=== PATIENT | male | born 1965 | race Hispanic/Latino ===

== ENCOUNTER 2017-02-10 20:00 | Emergency (ER) | payer OTHER ==
--- NOTE | 2017-02-10 21:08 | XRay Report ---
FINAL REPORT PROCEDURE: XR SCAPULA LT TECHNIQUE: LEFT scapula radiographs, including AP and transthoracic views. HISTORY: left scapula pain COMPARISON: No prior studies are available for comparison. FINDINGS: No evidence of acute fracture or dislocation. There is marked narrowing of the glenohumeral joint space. There is sclerosis of the opposing surfaces and moderate-sized marginal osteophytic spurs projecting inferiorly. Scapula is otherwise unremarkable. Mild osteoarthritic change seen in the AC joint. IMPRESSION: Moderate osteoarthritic changes glenohumeral joint space. Mild osteoarthritic changes AC joint. No other abnormalities are seen.
[2017-02-11] MEDS ORDERED: ULTRAM PO ONE (01:12)
--- NOTE | 2017-02-11 01:13 | Emergency Department Report ---
Upper Extremity - HPI Chief Complaint: Shoulder Injury Stated Complaint: SHOULDER PAIN Time Seen by Provider: 02/11/17 00:44 Upper Extremity: Left Shoulder Occurred When: >5 Days (several months) Severity: moderate Symptoms: Yes Pain with Movement, No Deformity, No Limited Range of Movement, No Numbness, No Weakness, No Swelling, No Bruising/Ecchymosis, No Laceration or Abrasion Other History: 51-year-old male past medical history smoker presents with complaint of acute on chronic left-sided shoulder pain. Patient states that he has had shoulder pain for several years. Patient came to the ED with a family member who is being evaluated. As patient has not had his left shoulder pain addressed by a physician he elected to get registered in the ED and obtain a medical opinion about his long-standing left shoulder pain. Patient states that his left shoulder aches at the end of the day, patient is construction estimator. Patient states there is a dull achy sensation that is worse after prolonged use of left shoulder. ED Review of Systems ROS: Stated complaint: SHOULDER PAIN Other details as noted in HPI Constitutional: denies: chills, fever Eyes: denies: eye pain, eye discharge, vision change ENT: denies: ear pain, throat pain Respiratory: denies: cough, shortness of breath, wheezing Cardiovascular: denies: chest pain, palpitations Endocrine: no symptoms reported Gastrointestinal: denies: abdominal pain, nausea, diarrhea Genitourinary: denies: urgency, dysuria Musculoskeletal: as per HPI (chronic left shoulder pain). denies: back pain, joint swelling, arthralgia Skin: denies: rash, lesions Neurological: denies: headache, weakness, paresthesias Psychiatric: denies: anxiety, depression Hematological/Lymphatic: denies: easy bleeding, easy bruising ED Past Medical Hx - Past Medical History Previous Medical History?: No Hx Pulmonary Embolism: Yes - Surgical History Additional Surgical History: pilonidal cyst - Social History Smoking Status: Current Every Day Smoker Substance Use Type: None - Medications Home Medications: Home Medications Medication Instructions Recorded Confirmed Last Taken Type Cephalexin [Keflex] 500 mg PO BID #20 capsule 01/04/13 Unknown Rx Hydrocodone Bit/Acetaminophen 1 each PO Q8HR PRN #15 tablet 01/04/13 Unknown Rx [Lortab 5-500 Tablet] Famotidine [Pepcid] 20 mg PO BID PRN #1 bottle 02/11/17 Unknown Rx Naproxen [Naprosyn] 500 mg PO BID PRN #30 tablet 02/11/17 Unknown Rx traMADol [Ultram 50 MG tab] 50 mg PO Q6HR PRN #12 tablet 02/11/17 Unknown Rx Upper Extremity Exam - Exam General: Vital signs noted. No distress. Alert and acting appropriately. Head and Torso: No HEENT Abnormality, No Neck Tenderness, No Chest/Lungs Abnormality, No Abdominal Tenderness, No Back Tenderness Shoulder Exam: Yes Normal Range of Motion in Shoulder (shoulder flexion and extension lateral flexion abduction and abduction and internal/external rotation intact left shoulder), No Shoulder Tenderness, No Clavicle Tenderness, No Shoulder Deformity, No AC Joint Tenderness Arm Exam: No Arm/Humerus Tenderness, No Arm Deformity Elbow: Yes Normal Range of Motion in Elbow (elbow flexion and extension intact, pronation supination intact), No Elbow Tenderness, No Elbow Deformity Forearm: No Forearm Tenderness, No Forearm Deformity, No Pain with Pronation, No Pain with Supination Wrist: Yes Normal ROM in Wrist, No Wrist Tenderness, No Wrist Deformity, No Snuffbox Tenderness, No Pain with Axial Thumb Compression Hand: Yes Normal ROM in Digit(s), No Hand Tenderness, No Hand Deformity, No Digit Tenderness, No Digit(s) Deformity, No Tendon Dysfunction CMS Exam: Yes Normal Distal Pulses (distal radial and brachial pulses intact, distal capillary refill less than 1 second, distal sensation intact on exam), Yes Normal Capillary Refill, Yes Normal Distal Sensation, No Broken Skin ED Course Vital Signs 02/10/17 20:06 Temperature 97.4 F L Pulse Rate 96 H Respiratory 16 Rate Blood Pressure 155/100 O2 Sat by Pulse 100 Oximetry ED Medical Decision Making - Medical Decision Making A/P: Acute on chronic left shoulder pain, chronic left shoulder osteoarthritis 1-given patient's history and 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 X-rays consistent with osteoarthritis left shoulder scapula and AC joint. Range of motion left shoulder preserved. Left upper extremity neurovascularly intact. Good distal pulses and good distal sensation. Strength 5 out of 5. 2-short course when necessary tramadol, naproxen when necessary. I advised patient to take medicines after eating to mitigate any acid reflux. Pepcid when necessary 3-follow-up with primary care and orthopedics. I provided patient with referral information Critical care attestation.: If time is entered above; I have spent that time in minutes in the direct care of this critically ill patient, excluding procedure time. ED Disposition Clinical Impression: Osteoarthritis of left shoulder Qualifiers: Osteoarthritis type: unspecified Qualified Code(s): M19.012 - Primary osteoarthritis, left shoulder Disposition: TO HOME OR SELFCARE Is pt being admited?: No Does the pt Need Aspirin: No Condition: Stable Instructions: Osteoarthritis (ED) Prescriptions: Famotidine [Pepcid] 20 mg PO BID PRN #1 bottle PRN Reason: Indigestion Naproxen [Naprosyn] 500 mg PO BID PRN #30 tablet PRN Reason: Pain , Severe (7-10) traMADol [Ultram 50 MG tab] 50 mg PO Q6HR PRN #12 tablet PRN Reason: Pain Referrals: [facility] [Outside] - 3-5 Days [facility] [Outside] - 3-5 Days [facility] [Provider Group] - 3-5 Days Time of Disposition: 01:16
[2017-02-11 02:17] VITALS: BP 144/100
== END 2017-02-11 01:20 | disposition home or self-care (01) ==
LOC: ED 20:00
DX: M19.012 Primary osteoarthritis, left shoulder (principal); I26.99 Other pulmonary embolism without acute cor pulmonale; F17.200 Nicotine dependence, unspecified, uncomplicated
CPT/HCPCS: 99283

== ENCOUNTER 2017-11-09 12:22 | Emergency (ER) | payer SELFPAY ==
[2017-11-09] MEDS ORDERED: BOOSTRIX IM ONE (12:44)
[2017-11-09] MEDS ORDERED: BACTRIM DS PO ONE (13:04)
[2017-11-09] MEDS ORDERED: CATAPRES PO ONE (13:04)
--- NOTE | 2017-11-09 13:07 | Emergency Department Report ---
HPI - General Chief Complaint: Puncture Wound Time Seen by Provider: 11/09/17 12:37 - HPI HPI: 52-year-old male presents to the emergency department with pain and swelling to the right ring finger that has been going on since he had a accidental puncture wound from a nail about one week ago. He says that he cleaned it out at that time and it did not go very deep. The pain and swelling has been more recent. He denies any fever, skin color change. He is right- hand dominant. The patient also presents with elevated blood pressure and has a history of hypertension but is not on any medications and does not follow-up with physicians. He is a smoker. He drinks a cup of coffee and multiple caffeinated drinks per day. He denies any headache, chest pain, shortness of breath. He is not up-to-date with tetanus vaccination. ED Past Medical Hx - Past Medical History Previous Medical History?: Yes Hx Pulmonary Embolism: Yes - Surgical History Additional Surgical History: pilonidal cyst - Social History Smoking Status: Current Every Day Smoker Substance Use Type: Alcohol - Medications Home Medications: Home Medications Medication Instructions Recorded Confirmed Last Taken Type Famotidine [Pepcid] 20 mg PO BID PRN #1 bottle 02/11/17 Unknown Rx Naproxen [Naprosyn] 500 mg PO BID PRN #30 tablet 02/11/17 Unknown Rx Sulfamethoxazole/Trimethoprim 1 each PO BID #14 tablet 11/09/17 Unknown Rx [Bactrim DS TAB] amLODIPine [Norvasc] 5 mg PO DAILY #30 tab 11/09/17 Unknown Rx traMADol [Ultram 50 MG tab] 50 mg PO Q6HR PRN #10 tablet 11/09/17 Unknown Rx ED Review of Systems ROS: Stated complaint: FINGER SWOLLEN Other details as noted in HPI Comment: All other systems reviewed and negative Constitutional: denies: chills, fever Eyes: denies: eye pain, eye discharge, vision change ENT: denies: ear pain, throat pain Respiratory: denies: cough, shortness of breath, wheezing Cardiovascular: edema (right ring finger). denies: chest pain, palpitations Gastrointestinal: denies: abdominal pain, nausea, diarrhea Genitourinary: denies: urgency, dysuria Musculoskeletal: joint swelling, arthralgia Skin: denies: change in color, pruritus Neurological: denies: headache, numbness Physical Exam - Physical Exam Vital Signs: Vital Signs 11/09/17 12:30 Temperature 98.1 F Pulse Rate 88 Respiratory 16 Rate Blood Pressure 183/107 O2 Sat by Pulse 99 Oximetry Physical Exam: GENERAL: The patient is well-developed well-nourished. HENT: Normocephalic. Atraumatic. Patient has moist mucous membranes. EYES: Extraocular motions are intact. Pupils equal reactive to light bilaterally. NECK: Supple. Trachea is midline. CHEST/LUNGS: Clear to auscultation. There is no respiratory distress noted. HEART/CARDIOVASCULAR: Regular. There is no tachycardia. There is no murmur. ABDOMEN: Abdomen is soft, nontender. Patient has normal bowel sounds. There is no abdominal distention. SKIN: Skin is warm and dry. There is some nonpitting swelling of the right ring finger. No erythema, no areas of fluctuance but she didn't see a small area where he had the previous puncture wound. No bleeding, weeping or drainage.. NEURO: The patient is awake, alert, and oriented. The patient is cooperative. The patient has no focal neurologic deficits. The patient has normal speech. MUSCULOSKELETAL: There is tenderness to palpation to the right ring finger towards the PIP joint where the patient had the puncture wound. There is some decreased range of motion of the ring finger secondary to the swelling. ED Course Vital Signs 11/09/17 12:30 Temperature 98.1 F Pulse Rate 88 Respiratory 16 Rate Blood Pressure 183/107 O2 Sat by Pulse 99 Oximetry ED Medical Decision Making - Radiology Data Radiology results: image reviewed interpreted by me: X-ray of the right ring finger does not show any fracture, dislocation or any other acute process. - Medical Decision Making Patient presents with swelling and discomfort to the right ring finger after a puncture wound from about 1 week ago. There is nonpitting swelling but no erythema, purulent drainage, bleeding. The patient does not have tenderness to palpation along the entire length of the finger and is able to extend the finger and therefore it is low suspicion for flexor tenosynovitis. No obvious cellulitis. An x-ray was done that does not show any fracture, dislocation or any other acute process. He is neurovascularly intact. He will be started on antibiotics. Patient also presents with elevated blood pressure. He does not follow up with any primary care physician. He is a tobacco smoker and drinks multiple caffeinated drinks per day. We discussed dietary and lifestyle changes. He was given a Catapres and his blood pressure came down to a more reasonable level. He is being started on Norvasc and has been instructed to keep a blood pressure log. He has been given multiple primary care physician referrals. - Differential Diagnosis cellulitis, flexor tenosynovitis, abscess, fracture, retained foreign body Critical Care Time: No Critical care attestation.: If time is entered above; I have spent that time in minutes in the direct care of this critically ill patient, excluding procedure time. ED Disposition Clinical Impression: Finger pain, right, Finger infection Hypertension Qualifiers: Hypertension type: essential hypertension Qualified Code(s): I10 - Essential ( primary) hypertension Disposition: TO HOME OR SELFCARE Is pt being admited?: No Condition: Stable Instructions: Puncture Wound (ED), Hypertension (ED) Additional Instructions: Please follow up with a primary care physician regarding your elevated blood pressure. I'm starting him on a medication for your elevated blood pressure called Norvasc/amlodipine that is to be taken once per day, usually in the morning. Try and quit smoking. Stay away from foods are high in salt and caffeinated products. Keep a blood pressure log. Take the antibiotics as prescribed. Return to the emergency department immediately with any worsening of your finger pain and swelling, development of any surrounding redness or discharge of pus, development of fever, or with any acute distress. I am giving you a referral for a local orthopedist, Dr. Bhakta, to follow up regarding your finger pain and swelling. You have been prescribed a medication that is sedating and therefore should not be taken prior to driving, working, and responsible for children and in no way should be mixed with alcohol of any quantity. Prescriptions: amLODIPine [Norvasc] 5 mg PO DAILY #30 tab Sulfamethoxazole/Trimethoprim [Bactrim DS TAB] 1 each PO BID #14 tablet traMADol [Ultram 50 MG tab] 50 mg PO Q6HR PRN #10 tablet PRN Reason: Pain Referrals: ANASTACIA RODNEY MD [Primary Care Provider] - 2-3 Days TEODORO BHAKTA MD [Staff Physician] - 2-3 Days TAMAR GROSS MD [Staff Physician] - 2-3 Days [facility] [Outside] - 2-3 Days Time of Disposition: 14:04
[2017-11-09 13:55] VITALS: BP 155/105
--- NOTE | 2017-11-09 14:25 | XRay Report ---
FINAL REPORT EXAM: XR FINGER(S) 2+V RT HISTORY: PAIN/SWELLING R/T PUNCTURE WOUND 4TH DIGIT TECHNIQUE: Frontal view of right hand and 2 views of right ring finger. PRIORS: None. FINDINGS: No apparent fracture or dislocation. Joint spaces maintained. Diffuse soft tissue edema in the ring finger. IMPRESSION: 1. No acute osseous abnormality. 2. Soft tissue edema.
== END 2017-11-09 14:11 | disposition home or self-care (01) ==
LOC: ED 12:22
DX: L08.9 Local infection of the skin and subcutaneous tissue, unspecified (principal); I10 Essential (primary) hypertension; F17.200 Nicotine dependence, unspecified, uncomplicated; Z86.711 Personal history of pulmonary embolism
CPT/HCPCS: 90471; 90715; 99283

== ENCOUNTER 2018-04-05 23:03 | Emergency (ER) | payer OTHER ==
--- NOTE | 2018-04-06 00:58 | XRay Report ---
FINAL REPORT PROCEDURE: XR CHEST ROUTINE 2V TECHNIQUE: PA and lateral chest radiographs were obtained. CPT 09142 HISTORY: productive cough COMPARISON: No prior studies are available for comparison. FINDINGS: Heart: Normal. Mediastinum/Vessels: Normal. Lungs/Pleural space: Normal. Bony thorax: No acute osseous abnormality. Other: IMPRESSION: Normal examination.
--- NOTE | 2018-04-06 01:20 | Emergency Department Report ---
- General Chief Complaint: Upper Respiratory Infection Stated Complaint: COUGH/CHEST PAIN Time Seen by Provider: 04/06/18 01:13 Source: patient Mode of arrival: Ambulatory Limitations: No Limitations - History of Present Illness Initial Comments: 52-year-old male presents to the emergency room for shortness of breath cough for 2 weeks. reports that patient has had fever and chills and night sweats. She reported that he had Tylenol 7:30 pm. She denies any past medical history besides having pneumonia 4. Patient reports he does not take chronic medications he has tried [id number] TheraFlu and Robitussin. She has no known drug allergies. MD Complaint: fever, cough -: week(s) (2) Improves With: nothing Worsens With: nothing Associated Symptoms: fever, chills, diaphoresis, cough, right sweats Treatments Prior to Arrival: Acetaminophen - Related Data Previous Rx's Medication Instructions Recorded Last Taken Type Famotidine [Pepcid] 20 mg PO BID PRN #1 bottle 02/11/17 Unknown Rx Naproxen [Naprosyn] 500 mg PO BID PRN #30 tablet 02/11/17 Unknown Rx Sulfamethoxazole/Trimethoprim 1 each PO BID #14 tablet 11/09/17 Unknown Rx [Bactrim DS TAB] amLODIPine [Norvasc] 5 mg PO DAILY #30 tab 11/09/17 Unknown Rx traMADol [Ultram 50 MG tab] 50 mg PO Q6HR PRN #10 tablet 11/09/17 Unknown Rx Albuterol Sulfate [Proventil Hfa] 6.7 gm IH QID PRN #1 hfa.aer.ad 04/06/18 Unknown Rx Prednisone [predniSONE 10 mg 10 mg PO .TAPER #1 tab.ds.pk 04/06/18 Unknown Rx (6-Day Pack, 21 Tabs)] Sulfamethoxazole/Trimethoprim 1 each PO BID #14 tablet 04/06/18 Unknown Rx [Bactrim DS TAB] Allergies Allergy/AdvReac Type Severity Reaction Status Date / Time No Known Allergies Allergy Unverified 01/04/13 11:47 ED Review of Systems ROS: Stated complaint: COUGH/CHEST PAIN Other details as noted in HPI Comment: All other systems reviewed and negative Constitutional: chills, fever Respiratory: cough, wheezing Cardiovascular: denies: chest pain, palpitations Gastrointestinal: denies: abdominal pain, nausea, diarrhea ED Past Medical Hx - Past Medical History Hx Hypertension: Yes Hx Pulmonary Embolism: Yes Hx Arthritis: Yes Additional medical history: Pneumonia - Surgical History Additional Surgical History: pilonidal cyst - Social History Smoking Status: Current Every Day Smoker Substance Use Type: None - Medications Home Medications: Home Medications Medication Instructions Recorded Confirmed Last Taken Type Famotidine [Pepcid] 20 mg PO BID PRN #1 bottle 02/11/17 Unknown Rx Naproxen [Naprosyn] 500 mg PO BID PRN #30 tablet 02/11/17 Unknown Rx Sulfamethoxazole/Trimethoprim 1 each PO BID #14 tablet 11/09/17 Unknown Rx [Bactrim DS TAB] amLODIPine [Norvasc] 5 mg PO DAILY #30 tab 11/09/17 Unknown Rx traMADol [Ultram 50 MG tab] 50 mg PO Q6HR PRN #10 tablet 11/09/17 Unknown Rx Albuterol Sulfate [Proventil Hfa] 6.7 gm IH QID PRN #1 hfa.aer.ad 04/06/18 Unknown Rx Prednisone [predniSONE 10 mg 10 mg PO .TAPER #1 tab.ds.pk 04/06/18 Unknown Rx (6-Day Pack, 21 Tabs)] Sulfamethoxazole/Trimethoprim 1 each PO BID #14 tablet 04/06/18 Unknown Rx [Bactrim DS TAB] ED Physical Exam - General Limitations: No Limitations General appearance: alert, in no apparent distress - Head Head exam: Present: atraumatic, normocephalic - Eye Eye exam: Present: PERRL, EOMI - ENT ENT exam: Present: mucous membranes moist - Neck Neck exam: Present: normal inspection, full ROM. Absent: lymphadenopathy - Respiratory Respiratory exam: Present: wheezes, decreased breath sounds - Cardiovascular Cardiovascular Exam: Present: regular rate, normal rhythm. Absent: systolic murmur, diastolic murmur, rubs, gallop - GI/Abdominal GI/Abdominal exam: Present: soft, normal bowel sounds. Absent: distended, tenderness - Extremities Exam Extremities exam: Present: normal inspection - Neurological Exam Neurological exam: Present: alert, oriented X3 - Psychiatric Psychiatric exam: Present: normal affect, normal mood - Skin Skin exam: Present: diaphoretic ED Course Vital Signs 04/05/18 04/06/18 04/06/18 23:17 01:40 01:51 Temperature 97.7 F Pulse Rate 95 H Pulse Rate [ 80 88 Anterior Bilateral Throughout] Respiratory 18 Rate Respiratory 22 20 Rate [Anterior Bilateral Throughout] Blood Pressure 136/74 Blood Pressure [Left] O2 Sat by Pulse Oximetry 04/06/18 04/06/18 01:57 02:50 Temperature 97.7 F Pulse Rate 91 H Pulse Rate [ Anterior Bilateral Throughout] Respiratory 20 16 Rate Respiratory Rate [Anterior Bilateral Throughout] Blood Pressure Blood Pressure 116/76 [Left] O2 Sat by Pulse 96 Oximetry ED Medical Decision Making - Radiology Data Radiology results: report reviewed FINAL REPORT PROCEDURE: XR CHEST ROUTINE 2V TECHNIQUE: PA and lateral chest radiographs were obtained. CPT 19910 HISTORY: productive cough COMPARISON: No prior studies are available for comparison. FINDINGS: Heart: Normal. Mediastinum/Vessels: Normal. Lungs/Pleural space: Normal. Bony thorax: No acute osseous abnormality. Other: IMPRESSION: Normal examination. Transcribed By: CO Dictated By: JOSSIE CUMMINGS MD Electronically Authenticated By: JOSSIE CUMMINGS MD Signed Date/Time: 04/06/18 0058 - Medical Decision Making Patient has been evaluated by this provider in fast track. Patient was wheezing and having difficulty with breathing. Provider ordered dual neb and prednisone 60 mg by mouth Reevaluated patient is moving air better but still has some wheezing in the right lung field we were ordering another albuterol 5 mg. Patient had chest x-ray shows normal examination. We'll discharge patient home on a Medrol Dosepak and albuterol inhaler patient is to follow-up with his primary care provider or one will be referred to patient. Patient verbalized understanding. Critical care attestation.: If time is entered above; I have spent that time in minutes in the direct care of this critically ill patient, excluding procedure time. ED Disposition Clinical Impression: Wheezing on both sides of chest Disposition: DC-01 TO HOME OR SELFCARE Is pt being admited?: No Does the pt Need Aspirin: No Condition: Stable Instructions: Reactive Airways Disease (ED) Additional Instructions: Please complete antibiotics and steroids as prescribed. Please use inhaler as needed for shortness of breath cough and wheezing. All a lot with the primary care provider if his symptoms persist or gets worse. I have listed one below for your convenience. Prescriptions: Albuterol Sulfate [Proventil Hfa] 6.7 gm IH QID PRN #1 hfa.aer.ad PRN Reason: Wheezing Prednisone [predniSONE 10 mg (6-Day Pack, 21 Tabs)] 10 mg PO .TAPER #1 tab.ds.pk Sulfamethoxazole/Trimethoprim [Bactrim DS TAB] 1 each PO BID #14 tablet Referrals: PRIMARY CARE, [Primary Care Provider] - 3-5 Days [facility] [Provider Group] - 3-5 Days Forms: Accompanied Note, Work/School Release Form(ED)
[2018-04-06] MEDS ORDERED: DUONEB *Not for PRN Use IH ONE (01:21)
[2018-04-06] MEDS ORDERED: DELTASONE PO ONE (01:21)
[2018-04-06] MEDS ORDERED: PROVENTIL IH ONE (02:06)
[2018-04-06 02:51] VITALS: BP 116/76
== END 2018-04-06 02:51 | disposition home or self-care (01) ==
LOC: ED 23:03
DX: R06.2 Wheezing (principal); R05 Cough; R06.02 Shortness of breath; F17.200 Nicotine dependence, unspecified, uncomplicated; I10 Essential (primary) hypertension; M19.90 Unspecified osteoarthritis, unspecified site; Z86.711 Personal history of pulmonary embolism
CPT/HCPCS: 71046; 94640; 99283; J7512